=== PATIENT | male | born 1985 | race Caucasian/White ===

== ENCOUNTER 2024-10-26 07:57 | Emergency (ER) | payer OTHER, SELFPAY ==
[2024-10-26] VITALS (7 sets, daily range): BP systolic 122–129; BP diastolic 79–92; PULSE 62–80; RESP 16–18; TEMP 36.7; O2SAT 93–99; BMI 25.8
--- NOTE | 2024-10-26 08:20 | DI.RAD.S_ITS ---
PROCEDURE: XR CHEST 2V INDICATIONS: cough fever TECHNIQUE: 2 views of the chest were acquired. COMPARISON: None. FINDINGS AND IMPRESSION: A mild opacity is seen in the right mid lung peripheral aspect. This may represent early pneumonia. Consider future imaging surveillance to assess for resolution. Heart size is normal. No pleural effusions. Unremarkable osseous structures. Dictated by: Dhaval Barker M.D. on 10/26/2024 at 8:45 Approved by: Dhaval Barker M.D. on 10/26/2024 at 8:46
--- NOTE | 2024-10-26 08:44 | ED.URI ---
HPI - URI/Sore Throat General Chief Complaint: Upper Respiratory Symptoms Stated Complaint: really really sick , Lungs making noises Time Seen by Provider: 10/26/24 08:10 Source: patient Mode of arrival: Ambulatory History of Present Illness HPI Narrative: Patient 39-year-old healthy male presenting to day with upper respiratory like symptoms. He and his both got back from [place] and are ill. He reports that he feels like he is wheezing can not take in a full breath. He is coughing. Been taking [id number] DayQuil NyQuil vitamin-C without any significant relief. No abdominal pain nausea or vomiting. Related Data Previous Rx's Medication Instructions Recorded albuterol sulfate 90 mcg/actuation 2 puff inhalation Q4-6H PRN 10/26/24 aerosol inhaler shortness of breath or wheezing #8.5 grams amoxicillin 500 mg capsule 1,000 mg (2 x 500 mg) PO TID 5 10/26/24 days #30 caps azithromycin 250 mg tablet See Rx Instructions PO .COMPLEX #6 10/26/24 tabs Patient History Social History Smoking Status: Never smoker Smoking Status: Never smoker Exam Initial Vital Signs Initial Vital Signs: Vital Signs Temperature 98.0 F 10/26/24 08:31 Pulse Rate 80 10/26/24 08:31 Respiratory Rate 18 10/26/24 08:31 Blood Pressure 129/92 H 10/26/24 08:31 Pulse Oximetry 96 10/26/24 08:31 Oxygen Delivery Method Room Air 10/26/24 08:31 GENERAL: Alert 39-year-old male no significant respiratory distress HEENT: Head atraumatic,EOMI, pupils reactive, face symmetric, [moist] mucous membranes [EARS:] [Tympanic membranes visualized, no erythema or bulging, no hemotympanum] [PHARYNX:] [No erythema, no tonsillar exudate, no cervical lymphadenopathy] CARDIOVASCULAR: Regular rate and rhythm without murmurs, rubs or gallops. RESPIRATORY: Wheezing bilaterally no conversational dyspnea minimal tachypnea ABDOMEN: Soft, nontender. Normoactive bowel sounds all 4 quadrants. No guarding or rebound. EXTREMITIES: Normal range of motion, no clubbing or edema. Neurovascularly intact NEUROLOGICAL: Alert and oriented x4.Normal gait and speech. Cranial nerves II through XII grossly intact. SKIN: Warm, dry, no laceration, no petechiae, no rashes or lesions. Course Orders Ordered: ED Orders 10/26/24 08:14 Covid-19 + FLU A/B + RSV - PCR Stat 10/26/24 08:20 Chest [XR chest 2V] Stat Discontinued Medications Albuterol/Ipratropium (Albuterol/Ipratropium 3 Ml Ampul) 3 ml INH NOW ONE Stop: 10/26/24 08:21 Last Admin: 10/26/24 08:49 Dose: 3 ml Documented By: SAT Vital Signs Vital signs: Vital Signs - 8 hr 10/26/24 08:31 10/26/24 08:38 10/26/24 08:50 Temperature 98.0 F Pulse Rate 80 62 75 Respiratory Rate 18 16 Blood Pressure 129/92 H Pulse Oximetry 96 99 98 Oxygen Delivery Method Room Air Room Air 10/26/24 09:00 Temperature Pulse Rate 78 Respiratory Rate Blood Pressure Pulse Oximetry 99 Oxygen Delivery Method MDM - URI/Sore Throat Lab Data Labs: Lab Results 10/26/24 Range/Units 08:14 SARS-CoV-2 (PCR) Negative (Negative) Influenza A (RT-PCR) Flu a negative (NEGATIVE) Influenza B (RT-PCR) Flu b negative (NEGATIVE) RSV (PCR) Negative (Negative) Imaging Data Chest x-ray: Radiologist's Impression: PROCEDURE: XR CHEST 2V INDICATIONS: cough fever TECHNIQUE: 2 views of the chest were acquired. COMPARISON: None. FINDINGS AND IMPRESSION: Lungs are clear. Heart size is normal. No pleural effusions. Unremarkable osseous structures. Dictated by: Dhaval Barker M.D. on 10/26/2024 at 8:48 Approved by: Dhaval Barker M.D. on 10/26/2024 at 8:48 [facility] Narrative Medical decision making narrative: Patient 39-year-old healthy male presenting today with upper respiratory like symptoms. On exam he was wheezing a no significant respiratory distress or conversational dyspnea. He did improve with albuterol. Viral panel is negative chest x-ray does suggest early pneumonia. here with similar symptoms as well. I will go ahead and treat for an atypical pneumonia. Discharge Plan Departure Patient Disposition: Home Clinical Impression: Atypical pneumonia Instructions: Atypical Pneumonia Activity Restrictions/Additional Instructions: *You have been diagnosed with atypical pneumonia *What to do: At this time increase fluids Tylenol Motrin as needed for pain and fever *Continue to take medications as directed Amoxicillin 1000 mg 3 times a day for 5 days Z-Maykel take as directed Albuterol inhaler 1-2 puffs every 4 hours if needed for coughing or shortness of *Follow up with your primary care provider in 2-3 days or call [phone] *Return to ER if you should have increased shortness of breath difficulty breathing not tolerating fluids [or] any new, worsening or concerning symptoms Prescriptions: New amoxicillin 500 mg capsule 1,000 mg PO TID 5 Days Qty: 30 0RF azithromycin 250 mg tablet See Rx Instructions PO .COMPLEX Qty: 6 0RF Rx Instructions: For 250 mg dose pack: take 500 mg today (day 1), then 250 mg for 4 days (days 2-5) albuterol sulfate 90 mcg/actuation HFA aerosol inhaler 2 puff INHALATION Q4-6H PRN (Reason: shortness of breath or wheezing) Qty: 8.5 0RF Stand Alone Forms: Patient Portal/API/Survey
[2024-10-26] MEDS: ALBUTEROL/IPRATROPIUM 3 ML AMPUL INH (08:49)
[2024-10-26 09:13] LABS: Influenza A - CEPHEID Flu A NEGATIVE (NEGATIVE); Influenza B - CEPHEID Flu B NEGATIVE (NEGATIVE); Respiratory Syncytial Virus Negative (Negative)
[2024-10-26 09:15] LABS: COVID-19 CEPHEID 4-PLEX PCR Negative (Negative)
== END 2024-10-26 09:47 | disposition home or self-care (01) ==
PROVIDERS: Emergency Provider Emergency Medicine
DX: J18.9 Pneumonia, unspecified organism (principal)
CPT/HCPCS: 0241U; 71046; 94640; 99283